=== PATIENT | male | born 1955 | race African-American/Black ===

== ENCOUNTER → 2017-03-28 | Day surgery (SDC) | payer OTHER, MEDICARE ==
[~2017-03-28] MED LIST: HYDROmorphone 2 MG/ML VIAL IV; LIDOCAINE 1% PF 2 ML VIAL. ID; LIDOCAINE 2% PF Vial for OR 5 ML VIAL.; MORPHINE SULFATE 2 MG/ML DISP.SYRIN. IV; PROCHLORPERAZINE 10 MG/2 ML VIAL. IV; PROPOFOL 40 ML IV; fentaNYL PF VIAL 100 MCG/2 ML VIAL IV
[2017-03-28] MEDS: IV RINGERS,LACTATED 1000ML 1,000 ML IV (09:14)
[2017-03-28 09:15] LABS: POC GLUCOSE 103 mg/dL (70-99)
== END | disposition home or self-care (01) ==
LOC: SURG 08:41
DX: Z09 Encounter for follow-up examination after completed treatment for conditions other than malignant neoplasm (principal); Z87.19 Personal history of other diseases of the digestive system; K21.0 Gastro-esophageal reflux disease with esophagitis; E78.00 Pure hypercholesterolemia, unspecified; I11.0 Hypertensive heart disease with heart failure; I25.10 Atherosclerotic heart disease of native coronary artery without angina pectoris; M19.90 Unspecified osteoarthritis, unspecified site; I50.9 Heart failure, unspecified; I25.2 Old myocardial infarction; E11.9 Type 2 diabetes mellitus without complications; E66.9 Obesity, unspecified; J45.909 Unspecified asthma, uncomplicated; Z86.73 Personal history of transient ischemic attack (TIA), and cerebral infarction without residual deficits; Z86.69 Personal history of other diseases of the nervous system and sense organs; Z87.39 Personal history of other diseases of the musculoskeletal system and connective tissue
CPT/HCPCS: 45378; 82962; J2704

== ENCOUNTER 2017-09-18 10:16 | Emergency (ER) | payer OTHER ==
[2017-09-18 11:24] LABS: ADD MAN DIFF? NO
[2017-09-18 11:31] LABS: BASO # 0.1 x10^3/uL (0.0-0.2); BASO % 1 % (0-3); EOS # 0.1 x10^3/uL (0.0-0.7); EOS % 1 % (0-3); HEMATOCRIT 36.3 % (39.0-53.0); HEMOGLOBIN 12.4 g/dL (13.0-17.5); LYMPH # 2.8 x10^3/uL (1.0-4.8); LYMPH % 31 % (24-48); MEAN CORPUSCULAR HEMOGLOBIN 31 pg (25-35); MEAN CORPUSCULAR HGB CONC 34 g/dL (31-37); MEAN CORPUSCULAR VOLUME 91 fL (79-100); MONO # 0.8 x10^3/uL (0.0-1.1); MONO % 8 % (0-9); NEUT # 5.3 x10^3uL (1.8-7.7); NEUT % 59 % (31-73); PLATELET COUNT 183 x10^3/uL (140-400); RED BLOOD COUNT 3.99 x10^6/uL (4.30-5.70); RED CELL DISTRIBUTION WIDTH 14.5 % (11.5-14.5); WHITE BLOOD COUNT 9.1 x10^3/uL (4.0-11.0)
[2017-09-18 11:40] LABS: INR 1.1 (0.8-1.1); PROTHROMBIN TIME PATIENT 13.5 SEC (11.7-14.0)
[2017-09-18 11:43] LABS: D-DIMER 0.71 ug/mlFEU (0.00-0.50)
[2017-09-18 11:45] LABS: ANION GAP 9 (6-14); BLOOD UREA NITROGEN 12 mg/dL (8-26); CALCIUM 9.5 mg/dL (8.5-10.1); CARBON DIOXIDE 28 mmol/L (21-32); CHLORIDE 106 mmol/L (98-107); GFR 92.5; GLUCOSE 92 mg/dL (70-99); SODIUM 143 mmol/L (136-145)
[2017-09-18 11:49] LABS: TROPONINI 0.035 ng/mL (0.000-0.055)
[2017-09-18 12:17] LABS: NT-PRO BNP 384 pg/mL (0-124)
[2017-09-18] MEDS: ASPIRIN CHEWABLE 81 MG TABLET. PO (12:20)
[2017-09-18] MEDS: ATENOLOL 50 MG TABLET. PO (12:39)
[2017-09-18] MEDS: hydrALAZINE 20 MG/ML VIAL. IVP (12:39)
[2017-09-18 14:49] LABS: TROPONIN BY ISTAT 0.02 ng/ml (<0.08)
== END 2017-09-18 15:08 | disposition home or self-care (01) ==
LOC: ER 10:16
DX: R07.89 Other chest pain (principal); R06.02 Shortness of breath; E11.9 Type 2 diabetes mellitus without complications; I10 Essential (primary) hypertension; F12.10 Cannabis abuse, uncomplicated; N40.0 Benign prostatic hyperplasia without lower urinary tract symptoms; Z86.73 Personal history of transient ischemic attack (TIA), and cerebral infarction without residual deficits; Z79.82 Long term (current) use of aspirin
CPT/HCPCS: 36415; 71045; 80048; 83880; 84484; 85025; 85379; 85610; 93005; 96374; 99285-25; J0360

== ENCOUNTER 2017-11-18 07:54 | Emergency (ER) | payer OTHER ==
[2017-11-18] MEDS: cloNIDine HCL 0.1 MG TABLET PO (08:22)
== END 2017-11-18 08:59 | disposition home or self-care (01) ==
LOC: ER 07:54
DX: I10 Essential (primary) hypertension (principal); R51 Headache; E11.9 Type 2 diabetes mellitus without complications; Z86.73 Personal history of transient ischemic attack (TIA), and cerebral infarction without residual deficits
CPT/HCPCS: 99283; 99285-25